=== PATIENT | male | born 1975 | race Asian ===

== ENCOUNTER 2017-01-17 11:05 | Emergency (ER) | payer SELFPAY ==
[~2017-01-17] VITALS: Ht 170.2 cm; Wt 83.6 kg
[2017-01-17 11:21] VITALS: BP 124/84
[2017-01-17] MEDS ORDERED: HYDROcodone/APAP 5/325 TABLET ONE ×2 (11:54→14:58)
[2017-01-17] MEDS ORDERED: KETOROLAC 30 MG/1 ML ONE (11:54)
[2017-01-17] MEDS ORDERED: DIAZEPAM 5 MG TABLET ONE (11:54)
[2017-01-17] MEDS ORDERED: KETOROLAC 30 MG/1 ML IM ONE (12:00)
[2017-01-17] MEDS ORDERED: DIAZEPAM 5 MG TABLET PO ONE (12:00)
[2017-01-17] MEDS ORDERED: HYDROcodone/APAP 5/325 TABLET PO ONE (12:00)
[2017-01-17] MEDS ORDERED: INDOMETHACIN 50 MG CAPSULE ONE (14:57)
== END 2017-01-17 12:05 | disposition home or self-care (01) ==
LOC: ED 11:59
DX: S39.012A Strain of muscle, fascia and tendon of lower back, initial encounter (principal); E11.9 Type 2 diabetes mellitus without complications; X58.XXXA Exposure to other specified factors, initial encounter; Y93.89 Activity, other specified; Y99.8 Other external cause status; Y92.89 Other specified places as the place of occurrence of the external cause
CPT/HCPCS: 72110; 96372; 99284; J1885

== ENCOUNTER 2017-04-12 23:15 | Emergency (ER) | payer OTHER ==
[~2017-04-12] VITALS: Ht 167.6 cm; Wt 83.8 kg
[2017-04-12] MEDS ORDERED: LIDOCAINE 1%, 20ML ONE (23:44)
[2017-04-12 23:54] LABS: HEMATOCRIT 44.9 % (39.2-51.8); HEMOGLOBIN 15.2 g/dL (13.7-18.0)
[2017-04-13] MEDS ORDERED: LIDOCAINE 1%, 20ML SQ ONE
[2017-04-13] MEDS ORDERED: AMPICILLIN/SULBACTAM 3 GM in SODIUM CHLORIDE 0.9% 100 ML IV ONE
[2017-04-13 00:05] LABS: ASPARTATE AMINO TRANSFERASE 8 U/L (15-37); BLOOD UREA NITROGEN 8 mg/dL (7-18)
[2017-04-13] MEDS ORDERED: METF500T4 PO (00:40)
[2017-04-13] MEDS ORDERED: SODIUM CHLORIDE 0.9% 1,000ML IVBOLUS ONE ×2 (01:00)
[2017-04-13] MEDS ORDERED: INSULIN REGULAR 100 UNITS/ML, 3ML VIAL SQ-INSULIN ONE (02:30)
[2017-04-13 03:51] VITALS: BP 145/92
== END 2017-04-13 03:53 | disposition home or self-care (01) ==
LOC: ED 23:59
DX: K04.7 Periapical abscess without sinus (principal); E11.65 Type 2 diabetes mellitus with hyperglycemia
CPT/HCPCS: 36415; 80053; 82010; 83930; 85025; 96365; 96372; 99285; J0295; J3490; J7030